=== PATIENT | female | born 1960 | race African-American/Black ===

== ENCOUNTER 2025-05-31 17:13 | Emergency (ER) | payer OTHER ==
[~2025-05-31] VITALS: Ht 167.6 cm; Wt 85.0 kg
[~2025-05-31 17:13] MED LIST: FAMO20TA8 PO; IBUP-2030 PO; MELA1TAB51 PO; MOM MT; NITR-87 MT; QUET50TA PO; TRAZ150T78 PO
[2025-05-31 17:16] VITALS: O2SAT 98
[2025-05-31] MEDS ORDERED: SODIUM CHLORIDE 0.9% 1,000 ML IV ONE (18:00)
[2025-05-31] MEDS ORDERED: AZITHROMYCIN 500MG/250ML 250 ML IV ONE (18:15)
[2025-05-31] MEDS ORDERED: CEFTRIAXONE 1GM/50ML 50 ML IV ONE (18:15)
[2025-05-31] MEDS ORDERED: SODIUM CHLORIDE 0.9% (SEPSIS BOLUS) IV ONE (18:15)
[2025-05-31 20:37] LABS: BASOPHILS % 0.3 % (0.0-2.0); EOSINOPHILS % 2.3 % (0.0-5.0); HEMATOCRIT. 33.6 % (36.0-48.0); HEMOGLOBIN. 10.6 g/dL (12.0-16.0); LYMPHOCYTES % 13.2 % (20.0-50.0); MEAN PLATELET VOLUME 7.5 fl (7.4-10.4); MONOCYTES % 9.5 % (2.0-8.0); NEUTROPHILS % 74.7 % (40.0-76.0); PLATELET 415 x1000/uL (130-400); RED BLOOD CELL COUNT 3.93 mill/uL (4.2-5.4); RED CELL DISTRIBUTION WIDTH 17.4 % (11.6-14.6)
[2025-05-31 20:49] LABS: INR 1.0
[2025-05-31 20:51] LABS: CREATININE 1.8 mg/dL (0.6-1.0); UREA NITROGEN BLOOD 21 mg/dL (9-23)
[2025-05-31 20:52] LABS: TROPONIN I HIGH SENSITIVITY < 4 ng/L (3.0-34)
[2025-05-31 20:53] LABS: ASPARTATE AMINOTRANSFERASE 20 IU/L (<34); BILIRUBIN DIRECT 0.1 mg/dL (<=3.0); BILIRUBIN TOTAL 0.5 mg/dL (0.1-1.0); PROTEIN TOTAL 7.1 g/dL (6.0-8.3)
[2025-05-31 23:58] VITALS: BP 129/80; PULSE 92; RESP 18; TEMP 36.9; O2SAT 97
== END 2025-06-01 00:20 | disposition short-term general hospital (02) ==
LOC: ER 17:13 → EDBEDREQTM 22:27 → EDBEDREQ 22:27 → ER 06-01 00:20 → CMPBEDREQ 06-01 13:08
DX: R55 Syncope and collapse (principal); I10 Essential (primary) hypertension; E11.9 Type 2 diabetes mellitus without complications; R06.02 Shortness of breath; Z79.899 Other long term (current) drug therapy; Z86.59 Personal history of other mental and behavioral disorders
CPT/HCPCS: 99285; 70450; 71045; 80076; 80048; 83880; 83605; 85025; 85610; 85730; 86850; 86900; 86901; 87040; 84484; 36415; 73552; 73110; 73130; 72192; 93005; J2060; J7030; A4606

== ENCOUNTER 2025-07-29 15:29 | Emergency (ER) | payer OTHER ==
[~2025-07-29] VITALS: Ht 160 cm; Wt 77.0 kg
[2025-07-29 15:34] VITALS: O2SAT 100
[2025-07-29 19:09] VITALS: BP 160/100; PULSE 65; RESP 17; TEMP 36.7; O2SAT 96
== END 2025-07-29 19:39 | disposition home or self-care (01) ==
LOC: ER 15:29
DX: F10.20 Alcohol dependence, uncomplicated (principal); F19.11 Other psychoactive substance abuse, in remission; E11.9 Type 2 diabetes mellitus without complications; F20.9 Schizophrenia, unspecified; I10 Essential (primary) hypertension; Z79.899 Other long term (current) drug therapy; Y90.9 Presence of alcohol in blood, level not specified
CPT/HCPCS: 99282